=== PATIENT | female | born 1965 | race Caucasian/White ===

== ENCOUNTER 2017-01-15 12:05 | Day surgery (SDC) | payer OTHER ==
[~2017-01-15] VITALS: Ht 170.2 cm; Wt 61.0 kg
[~2017-01-15 12:05] MED LIST: 0.9% Sodium Chloride 1,000 ML IV SCH; CALC600T12 PO; MULT-1018 PO; Sodium Chloride LOK Flush 10 mL Syringe IV PRN; fentaNYL-PF 50 mCg/mL 2 mL Inj IVPUSH PRN
[2017-01-15 12:21] VITALS: BP 118/64; PULSE 64; RESP 14; O2SAT 100
[2017-01-15 13:05] VITALS: BP 120/62; PULSE 62; RESP 16; O2SAT 100
--- NOTE | 2017-01-16 07:20 | ENDO ---
[address] [address] ENDOSCOPY PROCEDURE PATIENT: CLARA PARADA I : 1965 MR#: [id number] ADMIT: 01/15/2017 JOB ID: [id number] DATE: 01/15/2017 PROCEDURE: Colonoscopy. INDICATIONS: Screening. The patient's ASA classification is 1. Mallampati score is 1. MEDICATIONS: None at patient's request. INSTRUMENT USED: PCF H 180 AL. PREPARATION QUALITY: Was good. PROCEDURE DETAILS: After informed consent was obtained, the patient was brought into the GI suite, where she was placed on oxygen via nasal cannula and monitored with continuous pulse oximeter, telemetry, and blood pressure monitoring. A time-out was performed. Then, she was placed in the left lateral decubitus position. Medications were administered for sedation. Digital rectal examination was performed, which was unremarkable. The colonoscope was then inserted into the rectum and advanced under direct visualization to the cecum, which was identified by the presence of the ileocecal valve and appendiceal orifice. Once the cecum was reached, the colonoscope was withdrawn back into the rectum as the mucosa and lumen were examined. In the rectum, retroflexion was performed. Following retroflexion, remaining air in the rectum was suctioned, and the procedure was completed. FINDINGS: Small internal hemorrhoids were noted as the colonoscope was withdrawn through the anal canal, but otherwise normal examination from rectum to cecum. IMPRESSION: Small internal hemorrhoids. Otherwise normal examination from rectum to cecum. RECOMMENDATIONS: Repeat colonoscopy in 10 years, sooner if symptoms should dictate. COMPLICATIONS: None. ESTIMATED BLOOD LOSS: 0.
== END 2017-01-15 23:59 | disposition home or self-care (01) ==
LOC: END 12:05
PROVIDERS: ATTEND Internal Medicine Gastroenterology
DX: Z12.11 Encounter for screening for malignant neoplasm of colon (principal); K64.8 Other hemorrhoids; D69.6 Thrombocytopenia, unspecified
CPT/HCPCS: G0121; G0500; J7030